=== PATIENT | female | born 1955 | race Caucasian/White ===

== ENCOUNTER → 2017-11-04 | Outpatient (CLI) | payer BC ==
[~2017-11-04] VITALS: Ht 152.4 cm; Wt 75.7 kg
[~2017-11-04] MED LIST: ALEVE220 MG PO; FLONASE ALLERG9.9 ML BOTH NARES; GAVISCON TABLE1 EACH PO; SYNTHROID75 MCG PO; VITAMIN B-121000 MC3 PO; VITAMIN D-32000 UNI2 PO; WOMEN'S MULTI200 MCG PO
== END | disposition home or self-care (01) ==
LOC: AMB 09:12
DX: Z12.11 Encounter for screening for malignant neoplasm of colon (principal); D12.2 Benign neoplasm of ascending colon; K29.60 Other gastritis without bleeding; E03.9 Hypothyroidism, unspecified; K21.9 Gastro-esophageal reflux disease without esophagitis; Z88.6 Allergy status to analgesic agent
CPT/HCPCS: 88305; 88342 TC